=== PATIENT | male | born 1965 | race Caucasian/White ===

== ENCOUNTER 2017-03-24 13:15 | Emergency (ER) | payer BC ==
[2017-03-24 13:27] VITALS: BP 132/87
[2017-03-24] MEDS ORDERED: HYDROmorphone 1 MG/ML Syringe IVPUSH ONE ×2 (13:31→14:58)
[2017-03-24] MEDS ORDERED: Ondansetron 4 MG/2 ML SDV IVPUSH ONE ×2 (13:31→14:58)
[2017-03-24] MEDS ORDERED: Sodium Chloride 0.9% 10 ML Syringe FLUSH PRN (13:31)
[2017-03-24] MEDS ORDERED: Ketorolac 30 MG/ML SDV IVPUSH ONE (13:31)
--- NOTE | 2017-03-24 13:43 | EDM.PDOC ---
ED HPI RENAL/ - General Chief Complaint: Flank Pain Stated Complaint: left sided flank pain Time Seen by Provider: 03/24/17 13:24 Source of Information: Reports: Patient History Limitations: Reports: No limitations - History of Present Illness INITIAL COMMENTS - FREE TEXT/NARRATIVE: Patient has remote history of kidney stones. He states he had left sided flank pain since 0600. He was nauseated earlier this morning but does deny this currently. He has history of HTN. He denies chest pain, SOB, nausea, vomiting , fever or chills. He is having regular voiding and bowel habits. Symptom Onset Date: 03/24/17 Symptom Onset Time: 06:00 Timing/Duration: Reports: Intermittent Location: Reports: flank (left side) Quality: Reports: cramping, radiating Severity: severe Associated Symptoms: Reports: no other symptoms - Related Data Allergies/ADRs: Allergies Allergy/AdvReac Type Severity Reaction Status Date / Time IV Contrast Allergy Vomiting Uncoded 03/24/17 13:30 Home Meds: Home Meds Aspirin 81 mg PO DAILY 03/24/17 [History] Benazepril [Lotensin] 20 mg PO DAILY 03/24/17 [History] Hydrochlorothiazide 25 mg PO DAILY 03/24/17 [History] Past Medical History Cardiovascular History: Reports: Hypertension Genitourinary History: Reports: Renal calculus Social & Family History - Tobacco Use Smoking Status *Q: Never Smoker ED ROS GENERAL - Review of Systems Review Of Systems: See Below Constitutional: Reports: no symptoms HEENT: Reports: No symptoms Respiratory: Reports: No Symptoms Cardiovascular: Reports: No symptoms Endocrine: Reports: no symptoms GI/Abdominal: Reports: No symptoms : Reports: no symptoms Musculoskeletal: Reports: back pain Skin: Reports: no symptoms Neurological: Reports: No Symptoms Psychiatric: Reports: No symptoms Hematologic/Lymphatic: Reports: no symptoms Immunologic: Reports: no symptoms ED EXAM, RENAL/ - Physical Exam Exam: See Below Exam Limited By: No limitations General Appearance: alert, WD/WN, moderate distress Head: atraumatic, normocephalic Neck: normal inspection Respiratory/Chest: no respiratory distress, lungs clear, normal breath sounds Cardiovascular: normal peripheral pulses, regular rate, rhythm, no edema GI/Abdominal: normal bowel sounds, soft, non tender, no organomegaly Back Exam: CVA tenderness (L) Extremities: normal inspection, normal range of motion, normal capillary refill Neurological: alert, oriented, CN II-XII intact, normal cognition, normal gait Psychiatric: normal affect, normal mood Skin Exam: Warm, Dry, Intact Lymphatic: no adenopathy Course - Vital Signs Last Recorded V/S: Last Vital Signs Temp 36.4 C 03/24/17 13:20 Pulse 79 03/24/17 13:20 Resp 18 03/24/17 13:20 BP 132/87 03/24/17 13:20 Pulse Ox 96 03/24/17 13:20 - Orders/Labs/Meds Orders: Active Orders 24 hr Category Date Time Status Abdomen Pelvis wo Cont [CT] Stat Exams 03/24/17 13:31 Ordered C-REACTIVE PROTEIN [CHEM] Stat Lab 03/24/17 13:32 Ordered CBC WITH AUTO DIFF [HEME] Stat Lab 03/24/17 13:33 Ordered URINALYSIS W/MICROSCOPIC [UA W/MICROSCOPIC] [URIN] Stat Lab 03/24/17 13:32 Uncollected Sodium Chloride 0.9% [Normal Saline] 1,000 ml Med 03/24/17 13:45 Active IV ASDIRECTED Sodium Chloride 0.9% [Saline Flush] Med 03/24/17 13:31 Active 10 ml FLUSH ASDIRECTED PRN Saline Lock Insert [OM.PC] Routine Oth 03/24/17 13:31 Ordered Medication Orders Sodium Chloride (Normal Saline) 1,000 mls @ 999 mls/hr IV ASDIRECTED KINSEY Sodium Chloride (Saline Flush) 10 ml FLUSH ASDIRECTED PRN PRN Reason: Keep Vein Open Meds: Medications Generic Name Dose Route Start Last Admin Trade Name Freq PRN Reason Stop Dose Admin Sodium Chloride 1,000 mls @ 999 mls/hr 03/24/17 13:45 Normal Saline IV ASDIRECTED KINSEY Sodium Chloride 10 ml 03/24/17 13:31 Saline Flush FLUSH ASDIRECTED PRN Keep Vein Open Discontinued Medications Generic Name Dose Route Start Last Admin Trade Name Freq PRN Reason Stop Dose Admin Hydromorphone HCl 1 mg 03/24/17 13:31 Dilaudid IVPUSH 03/24/17 13:32 ONETIME ONE Ketorolac Tromethamine 30 mg 03/24/17 13:31 Toradol IVPUSH 03/24/17 13:32 ONETIME ONE Ondansetron HCl 4 mg 03/24/17 13:31 Zofran IVPUSH 03/24/17 13:32 ONETIME ONE - Re-Assessments/Exams Free Text/Narrative Re-Assessment/Exam: 03/24/17 13:44 ct w/o contrast of abdomen/pelvis, await results. UA ordered, crp and cbc Free Text/Narrative Re-Assessment/Exam: 03/24/17 15:[address] Be from [place] in [place]. Did not recommend any admission or further treatment besides medication for nausea, pain relief. Recommend being seen if not passed and not better in a few days. Departure - Departure Time of Disposition: 16:30 Disposition: Home, Self-Care 01 Condition: good Clinical Impression: Calculus of left kidney Instructions: Kidney Stones, [id number], Flank Pain, [id number], Pain Medicine Instructions, [id number] Forms: ED Department Discharge Additional Instructions: Use strainer to catch the stone as it passes. It may be helpful to bring that to the [facility] for evaluation of the stone to see what dietary changes you can make to prevent future formations of stones. Take the Flomax, also called tamulosin for the full 30 days, take the medications as scheduled for pain and nausea. If your pain and nausea are not controlled, you can certainly return for admission until this is tolerable. Your regimen should include the hydrocodone for pain, zofran for any nausea, aleve as directed and floxax once daily. Follow up with your primary as necessary Please read the information I have provided for you. Please call with any further questions or concerns. - Problem List & Annotations (1) Kidney stone on left side SNOMED Code(s): 13179642 Code(s): N20.0 - CALCULUS OF KIDNEY Status: Acute Priority: Medium Current Visit: Yes - Problem List Review Problem List Initiated/Reviewed/Updated: Yes - My Orders Last 24 Hours: My Active Orders 03/24/17 13:31 Abdomen Pelvis wo Cont [CT] Stat Sodium Chloride 0.9% [Saline Flush] 10 ml FLUSH ASDIRECTED PRN Saline Lock Insert [OM.PC] Routine 03/24/17 13:32 C-REACTIVE PROTEIN [CHEM] Stat URINALYSIS W/MICROSCOPIC [UA W/MICROSCOPIC] [URIN] Stat 03/24/17 13:33 CBC WITH AUTO DIFF [HEME] Stat 03/24/17 13:45 Sodium Chloride 0.9% [Normal Saline] 1,000 ml IV ASDIRECTED - Assessment/Plan Last 24 Hours: My Active Orders 03/24/17 13:31 Abdomen Pelvis wo Cont [CT] Stat Sodium Chloride 0.9% [Saline Flush] 10 ml FLUSH ASDIRECTED PRN Saline Lock Insert [OM.PC] Routine 03/24/17 13:32 C-REACTIVE PROTEIN [CHEM] Stat URINALYSIS W/MICROSCOPIC [UA W/MICROSCOPIC] [URIN] Stat 03/24/17 13:33 CBC WITH AUTO DIFF [HEME] Stat 03/24/17 13:45 Sodium Chloride 0.9% [Normal Saline] 1,000 ml IV ASDIRECTED Assessment:: Left sided kidney stone, 5 mm's in size in proximal ureter Plan: Use strainer to catch the stone as it passes. It may be helpful to bring that to the [facility] for evaluation of the stone to see what dietary changes you can make to prevent future formations of stones. Take the Flomax, also called tamulosin for the full 30 days, take the medications as scheduled for pain and nausea. If your pain and nausea are not controlled, you can certainly return for admission until this is tolerable. Your regimen should include the hydrocodone for pain, zofran for any nausea, aleve as directed and floxax once daily. Follow up with your primary as necessary Please read the information I have provided for you. Please call with any further questions or concerns.
[2017-03-24] MEDS ORDERED: Sodium Chloride 0.9% 1,000 ML IV SCH ×2 (13:45→15:15)
[2017-03-24] MEDS ORDERED: Tamsulosin 0.4 MG Cap.ER PO ONE (14:58)
[2017-03-24] MEDS ORDERED: Morphine 2 MG/ML Syringe IVPUSH ONE (15:27)
[2017-03-24 15:34] LABS: CHLORIDE,CL 100 mmol/L (98-107); SODIUM,NA 137 mmol/L (136-145)
== END 2017-03-24 16:24 | disposition home or self-care (01) ==
LOC: VM.ED 13:15
DX: N20.0 Calculus of kidney (principal); Z79.899 Other long term (current) drug therapy
CPT/HCPCS: 36415; 51798; 74176; 80048; 81001; 85025; 86140; 96361; 96374; 96375; 96376; 99283; 99284; A9270; J1170; J1885; J2270; J2405; J7030

== ENCOUNTER 2019-02-16 18:39 | Emergency (ER) | payer BC ==
--- NOTE | 2019-02-16 19:16 | EDM.PDOC ---
ED HPI GENERAL MEDICAL PROBLEM - General Chief Complaint: Upper Extremity Injury/Pain Stated Complaint: FALL Time Seen by Provider: 02/16/19 18:45 Source of Information: Reports: Patient History Limitations: Reports: No Limitations - History of Present Illness INITIAL COMMENTS - FREE TEXT/NARRATIVE: Patient comes into the emergency department with complaint of right shoulder pain. Patient fell prior to arrival. Patient was on the roof fell landing on his right shoulder on the roof. He did not fall off the roof. He denies in his head, denies losing consciousness. Denies any dizziness, lightheaded, chest pain , shortness of breath, or nausea. Patient states it is painful to lift his arm straight up or rotate his shoulder. It's that if he leaves his arm still it does not hurt. Patient denies any CMS concerns. He has limited range of motion due to pain. Onset: Sudden Location: Reports: Upper Extremity, Right Quality: Reports: Sharp, Throbbing Improves with: Reports: None Worsens with: Reports: None Context: Reports: Trauma Associated Symptoms: Reports: No Other Symptoms Right Upper Arm Pain Score (Numeric/FACES): 8 - Related Data Allergies Allergy/AdvReac Type Severity Reaction Status Date / Time IV Contrast Allergy Vomiting Uncoded 03/24/17 13:30 Home Meds: Home Meds Aspirin 81 mg PO DAILY 03/24/17 [History] Benazepril [Lotensin] 20 mg PO DAILY 03/24/17 [History] Hydrochlorothiazide 25 mg PO DAILY 03/24/17 [History] Past Medical History Cardiovascular History: Reports: Hypertension Genitourinary History: Reports: Renal Calculus Review of Systems - Review of Systems Review Of Systems: See Below Constitutional: Reports: No Symptoms Eyes: Reports: No Symptoms Ears: Reports: No Symptoms Nose: Reports: No Symptoms Mouth/Throat: Reports: No Symptoms Respiratory: Reports: No Symptoms Cardiovascular: Reports: No Symptoms GI/Abdominal: Reports: No Symptoms Genitourinary: Reports: No Symptoms Musculoskeletal: Reports: Arm Pain Skin: Reports: No Symptoms Neurological: Reports: No Symptoms Psychiatric: Reports: No Symptoms ED EXAM, GENERAL - Physical Exam Exam: See Below Exam Limited By: No Limitations General Appearance: Alert, WD/WN, No Apparent Distress Head: Atraumatic, Normocephalic Neck: Normal Inspection, Supple, Non-Tender, Full Range of Motion Respiratory/Chest: No Respiratory Distress, Lungs Clear, No Accessory Muscle Use , Chest Non-Tender Cardiovascular: Normal Peripheral Pulses, Regular Rate, Rhythm GI/Abdominal: Normal Bowel Sounds, Soft, Non-Tender, No Distention Back Exam: Normal Inspection, Full Range of Motion Extremities: Normal Inspection, Normal Capillary Refill, Limited Range of Motion (right arm pain. No ecchymosis, warmth, or tenderness to touch. Limited range of motion noted unable to extend arm over head or rotate. CMS intact) Neurological: Alert, Oriented Psychiatric: Normal Affect, Normal Mood Skin Exam: Warm, Dry, Intact, Normal Color Course - Vital Signs Last Recorded V/S: Last Vital Signs Temp 37.4 C 02/16/19 19:00 Pulse 74 02/16/19 19:00 Resp 18 02/16/19 19:00 BP 149/86 H 02/16/19 19:00 Pulse Ox 96 02/16/19 19:00 - Orders/Labs/Meds Orders: Active Orders 24 hr Category Date Time Status Brace [Immobilizer] [RC] ASDIRECTED Care 02/16/19 19:55 Ordered Departure - Departure Time of Disposition: 20:00 Disposition: Home, Self-Care 01 Condition: Good Clinical Impression: Rotator cuff injury Qualifiers: Encounter type: initial encounter Laterality: right Qualified Code(s): S46.001A - Unspecified injury of muscle(s) and tendon(s) of the rotator cuff of right shoulder, initial encounter - Discharge Information *PRESCRIPTION DRUG MONITORING PROGRAM REVIEWED*: Not Applicable *COPY OF PRESCRIPTION DRUG MONITORING REPORT IN PATIENT ROLAND: Not Applicable Instructions: How to Use a Sling, [id number], Rotator Cuff Tear Referrals: Kristian Childs PA-C [Primary Care Provider] - Forms: ED Department Discharge Additional Instructions: 1. rest 2. activity and diet as tolerated 3. Use the sling for comfort 4. Use the sling to help immobilization and reduce the discomfort 5. Can take Tylenol and ibuprofen as needed for pain and discomfort 6. Follow up with PCP to have an MRI scheduled for further evaluation of the rotator cuff injury 7. Call with any questions or concerns - Problem List Review Problem List Initiated/Reviewed/Updated: Yes - My Orders Last 24 Hours: My Active Orders 02/16/19 19:55 Brace [Immobilizer] [RC] ASDIRECTED - Assessment/Plan Last 24 Hours: My Active Orders 02/16/19 19:55 Brace [Immobilizer] [RC] ASDIRECTED Assessment:: 1. right shoulder pain Plan: 1. x-ray of right shoulder 2. Pt denies wanting any medication for pain relief. 3. Xray was negative. 4. Shoulder immobilizer is provided for comfort and immobilization until further MRI evaluation of the shoulder can be completed 5. Pt is educated to follow up with PCP for further MRI imaging recommendations 6. Pt denies any need of pain medication. Education provided regard OTC pain medications 7. All questions and concerns addressed prior to discharge.
--- NOTE | 2019-02-16 19:50 | CR ---
[id number] RAD/RAD Shoulder Right 2V Min Exam: RAD Shoulder Right 2V Min Indication:FALL, INJURY Comparison: No prior imaging for comparison. Discussion: Mild acromioclavicular and glenohumeral osteoarthritis. Subacromial space remains well-preserved. No dislocation or fracture. Impression: No acute findings. Chandan Agrawal MD 02/16/19 1948 Thank you for allowing us to participate in the care of your patient.
== END 2019-02-16 20:23 | disposition home or self-care (01) ==
LOC: VM.ED 18:39
DX: S46.001A Unspecified injury of muscle(s) and tendon(s) of the rotator cuff of right shoulder, initial encounter (principal); I10 Essential (primary) hypertension; Z79.82 Long term (current) use of aspirin; Z79.899 Other long term (current) drug therapy; Z91.041 Radiographic dye allergy status; W13.2XXA Fall from, out of or through roof, initial encounter
CPT/HCPCS: 73030-RT; 99283-25

== ENCOUNTER 2021-11-06 06:46 | Day surgery (SDC) | payer BC ==
[2021-11-06] MEDS ORDERED: Lactated Ringers 1,000 ML IV SCH (07:00)
[2021-11-06] MEDS ORDERED: fentaNYL 100 MCG/2 ML SDV ONE (08:03)
[2021-11-06] MEDS ORDERED: Propofol 200 MG/20 ML SDV ONE ×2 (08:03→08:13)
--- NOTE | 2021-11-06 12:17 | OR ---
PREOPERATIVE DIAGNOSIS: History of colon polyps. Last colonoscopy was 09/2019, and he had 6 adenomatous polyps removed. POSTOPERATIVE DIAGNOSES: 1. Three small polyps removed all using cold forceps. a. 3 mm polyp at 65 cm. b. 2 mm polyp x2 in the rectal area. 2. Moderate diverticulosis, left greater than right. 3. Normal-appearing distal ileum. PROCEDURE: Colonoscopy with polypectomy x2 using cold forceps. SURGEON: Catrachito Ingram M.D. ANESTHESIA: Monitored anesthesia care. BOWEL PREP: Fair to good. DESCRIPTION OF PROCEDURE: Diaz is a 56-year-old male who was brought to the endoscopy suite after discussing risks and benefits of the procedure. Informed consent was obtained for conscious sedation and colonoscopy with or without biopsy and/or polypectomy. We also discussed possibility of missed lesions. Pre-procedure exam was unremarkable. IV, oxygen, and monitors were placed. The patient was placed in the left lateral decubitus position. Sedation was administered and a digital rectal exam was performed and unremarkable. Colonoscope was passed into the rectum and slowly advanced all the way to the cecum. Cecum was viewed and photographed. Ileocecal valve was intubated and distal ileum was normal in appearance. The colonoscope was slowly withdrawn and the mucosa was closed observed in a direct circumferential manner. The ascending colon was unremarkable. There was noted to be some minimal diverticulosis. This increased throughout the colon as we went more distally. Transverse colon revealed a 3 mm polyp at 65 cm, removed using cold forceps. The descending and sigmoid colon revealed moderate diverticulosis. Rectal mucosa revealed 2 mm polyp x2, both removed using cold forceps. Retroflexion was otherwise unremarkable. Scope was removed. The patient tolerated the procedure well. The patient was monitored until that baseline status. Discharge instructions were reviewed and the patient was discharged in good condition. TOTAL TIME: 28 minutes. ESTIMATED BLOOD LOSS: Less than 1 mL. RECOMMENDATIONS/FOLLOW-UP: We will await results of path report to determine ideal followup interval. I will have the patient hold his aspirin for 3 days to limit any chance of bleeding from the polypectomy sites. I would like to kindly thank Kristian Childs for this referral. DMB: 11/06/2021 10:15:58 MODL: 11/06/2021 11:06:22 /[id number]
== END 2021-11-06 10:00 | disposition home or self-care (01) ==
LOC: VM.SDS 06:46
PROVIDERS: ATTEND Family Medicine
DX: Z12.11 Encounter for screening for malignant neoplasm of colon (principal); K63.5 Polyp of colon; K62.1 Rectal polyp; K57.30 Diverticulosis of large intestine without perforation or abscess without bleeding; I10 Essential (primary) hypertension; E66.9 Obesity, unspecified; Z98.890 Other specified postprocedural states; E78.2 Mixed hyperlipidemia; Z79.899 Other long term (current) drug therapy; Z91.041 Radiographic dye allergy status; Z68.37 Body mass index [BMI] 37.0-37.9, adult
CPT/HCPCS: 00811; 45380; J2704; J3010; J7120

== ENCOUNTER 2022-09-02 12:26 | Emergency (ER) | payer BC | END 2022-09-02 15:20 | disposition home or self-care (01) | LOC: VM.ED 12:26 | DX: R07.89 Other chest pain (principal); I10 Essential (primary) hypertension; Z79.82 Long term (current) use of aspirin; Z79.899 Other long term (current) drug therapy; Z91.041 Radiographic dye allergy status; Z79.84 Long term (current) use of oral hypoglycemic drugs | CPT/HCPCS: 93005; 93010; 99284 ==

== ENCOUNTER 2023-06-01 17:41 | Emergency (ER) | payer BC ==
[2023-06-01] MEDS: Take Home: Sulfamethoxazole/Trimethoprim 800-160 MG Tab, 6 Tab Pack PO ONE (21:35)
== END 2023-06-01 21:42 | disposition home or self-care (01) ==
LOC: VM.ED 17:41
DX: L03.116 Cellulitis of left lower limb (principal); E78.00 Pure hypercholesterolemia, unspecified; I10 Essential (primary) hypertension; E66.9 Obesity, unspecified; Z91.041 Radiographic dye allergy status; Z79.82 Long term (current) use of aspirin; Z68.36 Body mass index [BMI] 36.0-36.9, adult
CPT/HCPCS: 99283; 99284; A9270

== ENCOUNTER 2025-04-19 07:00 | Day surgery (SDC) | payer BC ==
[2025-04-19] MEDS: Lactated Ringers 1,000 ML IV SCH (07:14)
[2025-04-19] MEDS ORDERED: Propofol 200 MG/20 ML SDV ONE (08:06)
[2025-04-19] MEDS ORDERED: fentaNYL 100 MCG/2 ML SDV ONE (08:06)
== END 2025-04-19 10:25 | disposition home or self-care (01) ==
LOC: VM.SDS 07:00
PROVIDERS: ATTEND Family Medicine
DX: Z12.11 Encounter for screening for malignant neoplasm of colon (principal); Z86.0100 Personal history of colon polyps, unspecified; D12.0 Benign neoplasm of cecum; D12.6 Benign neoplasm of colon, unspecified; K63.5 Polyp of colon; K57.30 Diverticulosis of large intestine without perforation or abscess without bleeding; Z85.038 Personal history of other malignant neoplasm of large intestine; E11.41 Type 2 diabetes mellitus with diabetic mononeuropathy; I10 Essential (primary) hypertension; Z79.84 Long term (current) use of oral hypoglycemic drugs; Z79.899 Other long term (current) drug therapy
CPT/HCPCS: 00811; 82947; J2704; J3010; J7120

== ENCOUNTER 2025-09-15 08:11 | Emergency (ER) | payer BC ==
[2025-09-15] MEDS: Tetracaine HCl/PF 0.5% 4 ML Bottle EYERT ONE (08:29)
[2025-09-15] MEDS: Fluorescein 1 MG Ophth Strip EYELF ONE (08:29)
== END 2025-09-15 08:40 | disposition home or self-care (01) ==
LOC: VM.ED 08:11
DX: S05.02XA Injury of conjunctiva and corneal abrasion without foreign body, left eye, initial encounter (principal); I10 Essential (primary) hypertension; E78.00 Pure hypercholesterolemia, unspecified; E11.9 Type 2 diabetes mellitus without complications; E66.9 Obesity, unspecified; Z79.899 Other long term (current) drug therapy; Z91.041 Radiographic dye allergy status; X58.XXXA Exposure to other specified factors, initial encounter
CPT/HCPCS: 99283; J3490